=== PATIENT | male | born 1975 | race Caucasian/White ===

== ENCOUNTER 2022-04-12 16:53 | Outpatient (CLI) | payer BC ==
[2022-04-12 18:11] LABS: Bilirubin Neg (Negative); Blood, Urine 50 (Negative); Clarity Clear (Clear); Glucose, Urine (Dipstick) Normal (Negative); Ketone, Urine Negative (Negative); Leukocyte Negative (Negative); Nitrite Negative (Negative); Protein, Urine (Dipstick) Negative (Neg-Trace); Specific Gravity, Urine 1.025 (1.002-1.036); Urobilinogen Normal mg/dL (Less than 2)
[2022-04-12 18:17] LABS: Hemoglobin 15.2 g/dL (13.5-17.5); Mean Corpuscular HGB CONC 34.4 g/dL (32.0-36.0); Mean Corpuscular Hemoglobin 32.9 pg (27.0-33.0); Mean Corpuscular Volume 95.7 fl (81.2-95.1); Mean Platelet Volume 11.2 fl (7.4-10.4); Platelet Count 225 10x3/uL (150-450); RBC Distribution Width 12.2 % (11.5-14.5); Red Blood Cell (RBC) Count 4.62 10x6/uL (4.32-5.72)
[2022-04-12 18:39] LABS: RBC/HPF 0-3 HPF (0-3)
[2022-04-12 18:40] LABS: INR-International Normal Ratio 0.9; PTT 26.2 sec (22.0-33.0); Prothrombin Time 10.2 sec (9.5-12.1)
[2022-04-12 18:44] LABS: Anion Gap 17 mmol/L (10-20); BUN (Urea Nitrogen) 16 mg/dL (8.9-20.6); Calc. Creatinine Clearance 0 mL/min (70-130); Calcium 9.7 mg/dL (7.8-10.44); Carbon Dioxide 25 mmol/L (22-29); Chloride 104 mmol/L (98-107); Estimated GFR 108; Glucose 125 mg/dL (70-105); Potassium 4.1 mmol/L (3.5-5.1); Sodium 142 mmol/L (136-145)
== END 2022-04-12 16:54 | disposition home or self-care (01) ==
LOC: LABBT 16:53
PROVIDERS: ATTEND Urology
DX: Z01.818 Encounter for other preprocedural examination (principal); N20.2 Calculus of kidney with calculus of ureter; R35.0 Frequency of micturition; M1A.9XX1 Chronic gout, unspecified, with tophus (tophi); Z20.822 Contact with and (suspected) exposure to COVID-19
CPT/HCPCS: 80048; 81001; 85027; 85610; 85730; 87086; 87811; 93005; 93010

== ENCOUNTER 2022-04-16 07:54 | Day surgery (SDC) | payer BC ==
[2022-04-13 11:57] VITALS: BMI 37.4
[2022-04-16] MEDS ORDERED: Midazolam HCl 2 mg/2 ml Vial ONE (09:09)
[2022-04-16] MEDS ORDERED: Iopamidol 30 ML ONE (10:58)
[2022-04-16] MEDS ORDERED: PROPOFOL 200 MG/20 ML VIAL ONE (11:14)
[2022-04-16] MEDS ORDERED: Ketorolac Tromethamine 30 MG/ML VIAL ONE (11:14)
[2022-04-16] MEDS ORDERED: Glycopyrrolate 0.2 MG/ML 5 ML SYRINGE ONE (11:14)
[2022-04-16] MEDS ORDERED: Rocuronium Bromide 10 MG/ML (10ML VIAL) ONE (11:14)
[2022-04-16] MEDS ORDERED: Levofloxacin 500 mg/D5W 100 ml Premix Bag ONE (11:19)
[2022-04-16] MEDS ORDERED: fentaNYL Citrate/PF 100 MCG/2 ML SYRINGE ONE (11:55)
[2022-04-16] MEDS ORDERED: Fentanyl 100 MCG/2 ML VIAL ONE (12:04)
[2022-04-16] MEDS ORDERED: SUGAMMADEX SODIUM 200 MG/2 ML VIAL ONE (12:12)
[2022-04-16] MEDS ORDERED: Albuterol Sulfate 2.5 mg/3 ml Neb ONE (12:20)
[2022-04-16] MEDS ORDERED: Albuterol Sulfate 1.25 MG/3 ML NEB ONE (12:20)
[2022-04-16] MEDS ORDERED: Phenazopyridine HCl 100 MG TAB ONE (12:38)
[2022-04-16] MEDS ORDERED: HYDROcodone/Acetaminophen 5/325 mg Tablet ONE (13:49)
== END 2022-04-16 14:15 | disposition home or self-care (01) ==
LOC: SDC 07:54
PROVIDERS: ATTEND Urology
PROC: 0T768DZ Dilation of Right Ureter with Intraluminal Device, Via Natural or Artificial Opening Endoscopic (ICD-10-PCS; principal; 2022-04-16)
PROC: 0TC68ZZ Extirpation of Matter from Right Ureter, Via Natural or Artificial Opening Endoscopic (ICD-10-PCS; principal; 2022-04-16)
DX: N20.1 Calculus of ureter (principal); I10 Essential (primary) hypertension; F17.220 Nicotine dependence, chewing tobacco, uncomplicated; N53.19 Other ejaculatory dysfunction; M1A.9XX1 Chronic gout, unspecified, with tophus (tophi); E66.9 Obesity, unspecified; Z68.37 Body mass index [BMI] 37.0-37.9, adult; Z86.16 Personal history of COVID-19; Z98.52 Vasectomy status
CPT/HCPCS: 74018; 74420; C2617; J1885; J1956; J2250; J2704; J3010; J7611; Q9967

== ENCOUNTER 2022-07-30 08:05 | Outpatient (CLI) | payer BC | END 2022-07-30 08:06 | disposition home or self-care (01) | LOC: BICULT 08:05 | PROVIDERS: ATTEND Urology | DX: N20.0 Calculus of kidney (principal) | CPT/HCPCS: 74018; 76770 ==